=== PATIENT | female | born 1945 | race Caucasian/White ===

== ENCOUNTER → 2020-01-08 | Outpatient (CLI) | payer OTHER, MEDICARE ==
[~2020-01-08] MED LIST: BACTRIM PO; HYDROCHLOROTHIA25 M1 PO; K-DUR 20 MEQ T20 MEQ PO
== END ==
LOC: SJCVC 09:02
DX: R94.31 Abnormal electrocardiogram [ECG] [EKG] (principal); I44.7 Left bundle-branch block, unspecified

== ENCOUNTER → 2020-07-11 | Outpatient (CLI) | payer OTHER, MEDICARE | LOC: SJCVCIMAG 07:22 | PROVIDERS: ATTEND Internal Medicine | DX: Z45.018 Encounter for adjustment and management of other part of cardiac pacemaker (principal); I08.3 Combined rheumatic disorders of mitral, aortic and tricuspid valves; R94.31 Abnormal electrocardiogram [ECG] [EKG]; I10 Essential (primary) hypertension; I44.2 Atrioventricular block, complete; I44.30 Unspecified atrioventricular block; E78.5 Hyperlipidemia, unspecified; E11.9 Type 2 diabetes mellitus without complications; I31.3 Pericardial effusion (noninflammatory); Z82.49 Family history of ischemic heart disease and other diseases of the circulatory system; Z79.899 Other long term (current) drug therapy ==

== ENCOUNTER → 2021-01-22 | Outpatient (CLI) | payer OTHER, MEDICARE | LOC: SJCVC 10:35 | PROVIDERS: ATTEND Internal Medicine | DX: R94.31 Abnormal electrocardiogram [ECG] [EKG] (principal); I44.30 Unspecified atrioventricular block; I10 Essential (primary) hypertension; E11.9 Type 2 diabetes mellitus without complications; I45.89 Other specified conduction disorders; I31.3 Pericardial effusion (noninflammatory); E78.5 Hyperlipidemia, unspecified; I08.0 Rheumatic disorders of both mitral and aortic valves; Z79.899 Other long term (current) drug therapy; Z95.0 Presence of cardiac pacemaker; Z90.49 Acquired absence of other specified parts of digestive tract; Z82.49 Family history of ischemic heart disease and other diseases of the circulatory system; Z83.3 Family history of diabetes mellitus; Z88.8 Allergy status to other drugs, medicaments and biological substances ==

== ENCOUNTER → 2021-07-24 | Outpatient (CLI) | payer OTHER, MEDICARE | LOC: SJCVC 09:44 | PROVIDERS: ATTEND Internal Medicine | DX: R94.31 Abnormal electrocardiogram [ECG] [EKG] (principal); I44.30 Unspecified atrioventricular block; I10 Essential (primary) hypertension; E78.5 Hyperlipidemia, unspecified; E11.9 Type 2 diabetes mellitus without complications; I31.3 Pericardial effusion (noninflammatory); Z95.0 Presence of cardiac pacemaker; I44.1 Atrioventricular block, second degree; I08.0 Rheumatic disorders of both mitral and aortic valves; I26.99 Other pulmonary embolism without acute cor pulmonale; Z79.899 Other long term (current) drug therapy; Z88.8 Allergy status to other drugs, medicaments and biological substances ==